=== PATIENT | female | born 1950 | race Caucasian/White ===

== ENCOUNTER 2018-12-05 14:06 | Emergency (ER) | payer BC, MEDICAID, OTHER ==
[2018-12-05 14:16] VITALS: BP 143/75
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
--- NOTE | 2018-12-06 16:41 | ASMTCMCOM ---
CM Note CM Note Notes: Late Entry from 12/05/18: Pt presented to the ED through triage for cough, SOB and reported recent diagnosis of bronchitis. See ED Report. Pt was seen at [facility]'s ED earlier this morning and was seen at [facility] ED on 11/27 and per 's review of [place], it was noted that pt appeared to be malingering and primarily seeking a place to stay. CM requested to speak to pt and ensure she has local homelessness resources as she just arrived to [place] from [place] today. Pt states she recently moved to [place] from [place] about 2 weeks ago. Pt states she used to live in [place] from mid-s - 2000. CM provided pt w/info on [facility] and other various homelessness resources, [facility], etc. CM explained that pt can stay at the [facility] or [facility] for one night kimmie stay but needs to complete [facility] the next day (12/06). Pt also aware that [facility] is open tonight (12/05). Pt states she has Medicare and receives SSDI; pt has about $100 left until her next check. Pt states she will pay for a taxi to one of the longterm options. Pt discharged to the ED waiting area where she can use the telephone to call a cab. Pt strongly encouraged to followup with [facility] and [facility] to get established there for her chronic medical and mental health needs. CM available for further assistance if needed. Date Signed: 12/06/2018 04:40 PM Electronically Signed By:Cynthia Rothman RN
== END 2018-12-05 15:01 | disposition home or self-care (01) ==
DX: R05 Cough (principal); Z76.5 Malingerer [conscious simulation]

== ENCOUNTER 2018-12-11 08:32 | Emergency (ER) | payer OTHER ==
[2018-12-11] MEDS ORDERED: predniSONE 20 MG TAB PO ONE (08:36)
[2018-12-11] MEDS ORDERED: IPRATROPIUM/ALBUTEROL 3 ML DEYVIAL IH ONE (08:36)
--- NOTE | 2018-12-11 08:36 | EDPHY ---
H & P Stated Complaint: Cough, shortness of breath Time Seen by Provider: 12/11/18 08:35 HPI/ROS: CHIEF COMPLAINT: Cough, shortness of breath HISTORY OF PRESENT ILLNESS: Patient is a 68-year-old homeless female with a history of COPD who comes to the emergency department via EMS complaining of a cough and wheezing. EMS gave her a neb on the way over and she states that she feels completely better. No fever. She does have a persistent nonproductive cough. No GI symptoms. No chest pain. Severity: Moderate Modifying factors: Resolved after DuoNeb REVIEW OF SYSTEMS: Constitutional: denies: chills, fever, recent illness, recent injury EENTM: denies: blurred vision, double vision, nose congestion Respiratory: See HPI Cardiac: denies: chest pain, irregular heart rate, lightheadedness, palpitations Gastrointestinal/Abdominal: denies: abdominal pain, diarrhea, nausea, vomiting, blood streaked stools Genitourinary: denies: dysuria, frequency, hematuria, pain Musculoskeletal: denies: joint pain, muscle pain Skin: denies: lesions, rash, jaundice, bruising Neurological: denies: headache, numbness, paresthesia, tingling, dizziness, weakness Hematologic/Lymphatic: denies: blood clots, easy bleeding, easy bruising Immunologic/allergic: denies: HIV/AIDS, transplant 10 systems reviewed and negative except as noted EXAM: GENERAL: Obese, disheveled and in no acute distress. HEAD: Atraumatic, normocephalic. EYES: Pupils equal round and reactive to light, extraocular movements intact, sclera anicteric, conjunctiva are normal. ENT: TMs normal, nares patent, oropharynx clear without exudates. Moist mucous membranes. NECK: Normal range of motion, supple without lymphadenopathy or JVD. LUNGS: Breath sounds with minimal wheezing HEART: Regular rate and rhythm without murmurs, rubs or gallops. ABDOMEN: Soft, nontender, normoactive bowel sounds. No guarding, no rebound. No masses appreciated. BACK: No CVA tenderness, no spinal tenderness, step-offs or deformities EXTREMITIES: Normal range of motion, positive edema. No clubbing or cyanosis. NEUROLOGICAL: Cranial nerves II through XII grossly intact. Normal speech, normal gait. 5/5 strength, normal movement in all extremities, normal sensation , normal reflexes PSYCH: Normal mood, normal affect. SKIN: Warm, dry, normal turgor, no visible rashes or lesions. Source: Patient, EMS Exam Limitations: No limitations - Medical/Surgical History Hx Asthma: Yes Hx Chronic Respiratory Disease: Yes Hx Diabetes: No Hx Cardiac Disease: No Hx Renal Disease: No Hx Cirrhosis: No Hx Alcoholism: No Hx HIV/AIDS: No Hx Splenectomy or Spleen Trauma: No Other PMH: bipolar. copd asthma - Family History Significant Family History: No pertinent family hx - Social History Smoking Status: Never smoked Alcohol Use: Sober Drug Use: None Constitutional: Initial Vital Signs Temperature (C) 36.9 C 12/11/18 08:37 Heart Rate 71 12/11/18 08:37 Respiratory Rate 20 12/11/18 08:37 Blood Pressure 150/86 H 12/11/18 08:37 O2 Sat (%) 93 12/11/18 08:37 O2 Delivery Mode Room Air Allergies/Adverse Reactions: No Known Allergies Allergy (Unverified 12/05/18 14:13) Home Medications: Medication Instructions Recorded [place] Carbonate 12/05/18 Amoxicillin/Clavulanate Pot 875 mg PO BID #20 tab 12/11/18 [Augmentin 875 MG TAB (RX)] Azithromycin 250 mg PO DAILY #4 tablet 12/11/18 Medical Decision Making - Diagnostics Imaging: Discussed imaging studies w/ yardage caller Radiologist ED Course/Re-evaluation: 8:55 a.m. patient's x-rays reassuring. She is saturating 95% on room air even for treatment. She has received steroids and prednisone. She does have yellowish productive cough and is high risk. Will start her on antibiotics for community-acquired pneumonia. She will not require admission. Differential Diagnosis: Partial list of the Differential diagnosis considered include but were not limited to; COPD exacerbation, asthma, pneumonia, bronchitis and although unlikely based on the history and physical exam, I also considered PE, acute coronary disease, sepsis. - Data Points Medications Given: Discontinued Medications Albuterol/Ipratropium (Duoneb) 3 ml IH EDNOW ONE Stop: 12/11/18 08:37 Last Admin: 12/11/18 08:58 Dose: 3 ml Amoxicillin/Clavulanate Potassium (Augmentin 875mg) 875 mg PO EDNOW ONE PRN Reason: Protocol Stop: 12/11/18 09:03 Last Admin: 12/11/18 09:35 Dose: 875 mg Azithromycin (Zithromax) 500 mg PO EDNOW ONE PRN Reason: Protocol Stop: 12/11/18 08:58 Last Admin: 12/11/18 09:29 Dose: 500 mg Prednisone (Prednisone) 60 mg PO EDNOW ONE Stop: 12/11/18 08:37 Last Admin: 12/11/18 08:56 Dose: 60 mg Departure - Departure Disposition: Home, Routine, Self-Care Clinical Impression: Chronic obstructive pulmonary disease with acute exacerbation Acute bronchitis Qualifiers: Bronchitis organism: unspecified organism Qualified Code(s): J20.9 - Acute bronchitis, unspecified Condition: Good Instructions: Acute Bronchitis (ED), COPD (Chronic Obstructive Pulmonary Disease) (ED) Referrals: Patient,NotPresent [Unknown] - As per Instructions Prescriptions: Amoxicillin/Clavulanate Pot [Augmentin 875 MG TAB (RX)] 875 mg PO BID #20 tab Azithromycin 250 mg PO DAILY #4 tablet
[2018-12-11] MEDS ORDERED: AMOXICILLIN/CLAVULANATE POT 875/125 MG TAB PO ONE ×2 (08:57→09:02)
[2018-12-11] MEDS ORDERED: AZITHROMYCIN 250 MG TAB PO ONE (08:57)
[2018-12-11 09:46] VITALS: BP 142/89
== END 2018-12-11 10:05 | disposition home or self-care (01) ==
LOC: EDUNIT#
DX: J44.1 Chronic obstructive pulmonary disease with (acute) exacerbation (principal); J20.9 Acute bronchitis, unspecified; Z59.0 Homelessness
CPT/HCPCS: 71046; 99284; J7512